=== PATIENT | male | born 1955 | race Caucasian/White ===

== ENCOUNTER 2020-02-21 09:01 | Day surgery (SDC) | payer BC ==
[~2020-02-21] VITALS: Ht 170.2 cm; Wt 75.9 kg
[~2020-02-21 09:01] MED LIST: AMLODIPINE-BEN1 EAC5 PO; Aspir 8181 MG PO; REVATIO20 MG PO; ZOCOR20 MG PO
== END 2020-02-21 11:10 | disposition home or self-care (01) ==
LOC: ORSCSDS 09:01
PROVIDERS: Internal Medicine Gastroenterology
PROC: 0DBK8ZX Excision of Ascending Colon, Via Natural or Artificial Opening Endoscopic, Diagnostic (ICD-10-PCS; principal; 2020-02-21 10:15)
PROC: 0DBL8ZX Excision of Transverse Colon, Via Natural or Artificial Opening Endoscopic, Diagnostic (ICD-10-PCS; principal; 2020-02-21 10:15)
DX: Z12.11 Encounter for screening for malignant neoplasm of colon (principal); D12.2 Benign neoplasm of ascending colon; K64.8 Other hemorrhoids; I10 Essential (primary) hypertension; E78.5 Hyperlipidemia, unspecified; G47.33 Obstructive sleep apnea (adult) (pediatric); Z79.82 Long term (current) use of aspirin; Z79.899 Other long term (current) drug therapy
CPT/HCPCS: 88305; J2704; J7120

== ENCOUNTER 2025-02-08 07:40 | Day surgery (SDC) | payer OTHER ==
[~2025-02-08] VITALS: Ht 170.2 cm; Wt 73.9 kg
[2025-02-08 09:03] VITALS: BP 108/78
== END 2025-02-08 09:23 | disposition home or self-care (01) ==
LOC: ORSCSDS 07:40
PROVIDERS: Internal Medicine Gastroenterology
PROC: 0DJD8ZZ Inspection of Lower Intestinal Tract, Via Natural or Artificial Opening Endoscopic (ICD-10-PCS; principal; 2025-02-08 09:00)
DX: Z12.11 Encounter for screening for malignant neoplasm of colon (principal); K57.30 Diverticulosis of large intestine without perforation or abscess without bleeding; Z86.0101 Personal history of adenomatous and serrated colon polyps; I10 Essential (primary) hypertension; E78.5 Hyperlipidemia, unspecified; G47.33 Obstructive sleep apnea (adult) (pediatric); Z79.899 Other long term (current) drug therapy
CPT/HCPCS: J2704; J7120